=== PATIENT | male | born 1935 ===

== ENCOUNTER 2018-02-16 12:30 | Inpatient (IN) | payer OTHER ==
[~2018-02-16] VITALS: Ht 165.1 cm; Wt 87.5 kg
[2018-02-16] MEDS ORDERED: MESTINON60 M1 PO (15:26)
[2018-02-16] MEDS ORDERED: SYNTHROID100 MCG PO (15:27)
[2018-02-16] MEDS ORDERED: HUMULIN 70100 UNIT/2 SUBCUTANEO (15:27)
[2018-02-16] MEDS ORDERED: LANTUS SOL100 UNIT/1 (15:28)
[2018-02-16] MEDS ORDERED: ADULT ASPIRIN81 MG PO (15:28)
[2018-02-16] MEDS ORDERED: ACIDO FOLICO (15:29)
[2018-02-16] MEDS ORDERED: NEURONTIN300 MG PO (15:29)
[2018-02-16] MEDS ORDERED: SINGULAIR10 MG PO (15:30)
[2018-02-16] MEDS ORDERED: LIPITOR40 MG PO (15:30)
[2018-02-16] MEDS ORDERED: LASIX20 MG PO (15:31)
[2018-02-16] MEDS ORDERED: TAMS0.4C PO (15:31)
[2018-02-16] MEDS ORDERED: SPIRIVA RESPIMAT4 G1 IH (15:31)
[2018-02-24] MEDS ORDERED: FOLIC ACID20 MG PO (14:42)
[2018-03-03] MEDS ORDERED: INTESTINEX680 M1 PO (14:49)
[2018-03-03] MEDS ORDERED: TAMSULOSIN HCL0.4 MG PO (14:49)
[2018-03-03] MEDS ORDERED: OXYC1TAB9 PO (14:49)
[2018-03-03] MEDS ORDERED: LEVAQUIN750 MG PO (14:50)
== END 2018-03-03 16:00 | disposition home or self-care (01) | DRG 329 ==
LOC: O/R 02-23 06:49 → SURG 02-23 08:45 → O/R 02-23 21:52 → ICU 02-24 18:48 → SURG 02-27 14:41 → ICU 02-27 16:28 → SURG 02-27 17:46 → MEDI 02-27 17:46 → SURG 03-03 16:00
PROVIDERS: Surgery; Urology
PROC: 4A033R1 Measurement of Arterial Saturation, Peripheral, Percutaneous Approach (ICD-10-PCS; 2018-02-23)
PROC: 0DJD8ZZ Inspection of Lower Intestinal Tract, Via Natural or Artificial Opening Endoscopic (ICD-10-PCS; 2018-02-23)
PROC: 0DTE4ZZ Resection of Large Intestine, Percutaneous Endoscopic Approach (ICD-10-PCS; principal; 2018-02-23 08:45)
PROC: 0T788DZ Dilation of Bilateral Ureters with Intraluminal Device, Via Natural or Artificial Opening Endoscopic (ICD-10-PCS; 2018-02-23 08:45)
PROC: 3E0F7GC Introduction of Other Therapeutic Substance into Respiratory Tract, Via Natural or Artificial Opening (ICD-10-PCS; 2018-02-24)
PROC: 5A1945Z Respiratory Ventilation, 24-96 Consecutive Hours (ICD-10-PCS; 2018-02-24)
PROC: 0BH17EZ Insertion of Endotracheal Airway into Trachea, Via Natural or Artificial Opening (ICD-10-PCS; 2018-02-24)
PROC: 4A12X4Z Monitoring of Cardiac Electrical Activity, External Approach (ICD-10-PCS; 2018-02-27)
DX: K57.20 Diverticulitis of large intestine with perforation and abscess without bleeding (principal); J95.821 Acute postprocedural respiratory failure; N32.1 Vesicointestinal fistula; J44.1 Chronic obstructive pulmonary disease with (acute) exacerbation; J45.21 Mild intermittent asthma with (acute) exacerbation; G70.00 Myasthenia gravis without (acute) exacerbation; E11.9 Type 2 diabetes mellitus without complications; E03.8 Other specified hypothyroidism; G47.33 Obstructive sleep apnea (adult) (pediatric); D64.89 Other specified anemias